=== PATIENT | female | born 1990 | race Two or more races ===

== ENCOUNTER 2019-06-21 11:35 | Inpatient (IN) | payer OTHER ==
[~2019-06-21] VITALS: Ht 170.2 cm; Wt 3.6 kg
[2019-06-28] MEDS ORDERED: SYNTHROID50 MCG PO (09:30)
[2019-06-28] MEDS ORDERED: PRENATABS FA T1 EACH PO (09:30)
[2019-06-28] MEDS ORDERED: TUMS200 MG (09:31)
== END 2019-07-08 12:17 | disposition home or self-care (01) | DRG 788 ==
LOC: OB/GYN 06-28 08:00 → SURG-SUITE 07-06 06:38 → O/R 07-06 06:38 → OB/GYN 07-06 08:00 → SURG-SUITE 07-06 14:00
PROVIDERS: ADMIT Obstetrics & Gynecology
PROC: 4A1HXFZ Monitoring of Products of Conception, Cardiac Rhythm, External Approach (ICD-10-PCS; 2019-07-06)
PROC: 3E033VJ Introduction of Other Hormone into Peripheral Vein, Percutaneous Approach (ICD-10-PCS; 2019-07-06)
PROC: 10D00Z1 Extraction of Products of Conception, Low, Open Approach (ICD-10-PCS; principal; 2019-07-06 09:30)
DX: O34.211 Maternal care for low transverse scar from previous cesarean delivery (principal); Z3A.39 39 weeks gestation of pregnancy; Z37.0 Single live birth

== ENCOUNTER 2022-10-21 09:33 | Inpatient (IN) | payer OTHER ==
[~2022-10-21] VITALS: Ht 170.2 cm; Wt 3.2 kg
[~2022-10-21 09:33] MED LIST: PRENATABS FA T1 EACH PO; SYNTHROID50 MCG PO; TUMS200 MG
== END 2022-10-31 13:59 | disposition home or self-care (01) | DRG 788 ==
LOC: O/R 10-29 06:00 → OB/GYN 10-29 06:00
PROVIDERS: ADMIT Obstetrics & Gynecology; ATTEND Obstetrics & Gynecology
PROC: 4A1HXCZ Monitoring of Products of Conception, Cardiac Rate, External Approach (ICD-10-PCS; 2022-10-29)
PROC: 10D00Z1 Extraction of Products of Conception, Low, Open Approach (ICD-10-PCS; principal; 2022-10-29 08:30)
DX: O34.211 Maternal care for low transverse scar from previous cesarean delivery (principal); Z3A.39 39 weeks gestation of pregnancy; Z37.0 Single live birth; Z20.822 Contact with and (suspected) exposure to COVID-19